=== PATIENT | male | born 1980 | race Caucasian/White ===

== ENCOUNTER 2021-02-09 23:31 | Emergency (ER) | payer OTHER, SELFPAY ==
[2021-02-09 23:40] VITALS: BP 168/112; PULSE 108; RESP 18; TEMP 36.6; O2SAT 98; BMI 41.8
--- NOTE | 2021-02-09 23:56 | PC.NURSE ---
Pt. moved to Rm 5 and provided a urine sample. Pt. is cooperative with staff and appropriate. Pt. is sitting quietly in Rm 5 at this time.
[2021-02-10] VITALS (8 sets, daily range): BP systolic 143–167; BP diastolic 90–96; PULSE 51–74; RESP 16–18; TEMP 36.4; O2SAT 98–100
[2021-02-10 00:12] LABS: UR Morphine/Opiate cutoff 300 Negative (Negative); Ur Creatinine 20 (Normal); Ur Specific Gravity 1.015 (Normal); Urine Amphetamines Negative (Negative); Urine Barbiturates Negative (Negative); Urine Benzodiazepines Negative (Negative); Urine Cocaine Negative (Negative); Urine MDMA Negative (Negative); Urine Methamphetamines Negative (Negative); Urine Phencyclidine Negative (Negative); Urine Tetrahydrocannabinol Positive (Negative); Urine pH 7 (Normal)
[2021-02-10 00:13] LABS: Urine Methadone Negative (Negative); Urine Oxycodone Negative (Negative); Urine Tricyclic Antidepressant Negative (Negative)
[2021-02-10 00:19] LABS: Add Manual Diff / Slide Review NO; Basophils Absolute Auto 0 /uL (0-100); Basophils Percent Auto 0.4 % (0-2); Eosinophils Absolute Auto 100 /uL (0-450); Eosinophils Percent Auto 1.4 % (2-4); Hematocrit 49.8 % (41-53); Hemoglobin 16.8 g/dL (13.5-17.5); Lymphocytes Absolute Auto 1800 /uL (1100-4500); Lymphocytes Percent Auto 19.4 % (25-40); Mean Corpuscular HGB Conc 33.8 % (30-36); Mean Corpuscular Hemoglobin 32.1 PG (26-34); Mean Corpuscular Volume 94.8 fL (80-100); Monocytes Absolute Auto 600 /uL (0-900); Monocytes Percent Auto 7.1 % (3-14); Neutrophils Absolute Auto 6500 /uL (1500-7000); Neutrophils Percent Auto 71.7 % (50-75); Platelet Count 188 X10^3/uL (150-400); Red Blood Cell Count 5.25 X10^6/uL (4.5-5.9); Red Cell Distribution Width 13.2 % (11.6-14.8); White Blood Cell Count 9.1 X10^3/uL (4.5-11.0)
[2021-02-10 00:25] LABS: Acetaminophen < 10 ug/mL (10-30); Alanine Aminotransferase 20 IU/L (<50); Albumin Globulin Ratio 1.3 (1.0-2.8); Alkaline Phosphatase 70 U/L (38-126); Aspartate Aminotransferase 22 IU/L (17-59); BUN Creatinine Ratio 13.3 (6-22); Bilirubin Total 0.7 mg/dL (0.2-1.3); Blood Urea Nitrogen 13 mg/dL (9-20); Calcium 9.2 mg/dL (8.4-10.2); Carbon Dioxide 27 mmol/L (22-32); Chloride 104 mmol/L (98-107); Estimated Glomerular Filt Rate > 60.0 mL/min (>60); Ethanol (ETOH) < 10 mg/dL; Globulin 3.2 g/dL (1.7-4.1); Glucose 95 mg/dL (70-100); HEMOLYSIS < 15 (0-50); Potassium 3.9 mmol/L (3.4-5.1); Salicylate < 1.0 mg/dL (<20); Sodium 137 mmol/L (137-145); Total Protein 7.2 g/dL (6.3-8.2)
[2021-02-10 01:01] LABS: Thyroid Stimulating Hormone 0.766 uIU/mL (0.47-4.68)
--- NOTE | 2021-02-10 01:55 | ED_ITS ---
HPI - Psych <DO Taiwo Harman Last Filed: 02/12/21 06:32> General Chief Complaint: Psychiatric Symptoms Stated Complaint: I don't want to harm myself Time Seen by Provider: 02/09/21 23:38 Source: patient Mode of arrival: Ambulatory History of Present Illness HPI Narrative: 41-year-old male smoker with noncontributory medical history presents with a chief complaint of suicidal ideation with plan. He states that he has become increasingly frustrated and depressed due to marital problems over the past few weeks. He denies any significant mental health history and has never had hospitalizations. He has no mental health providers. His primary care provider has had him on Prozac and just started some Seroquel. Patient denies any alcohol or street drugs. He denies any access to firearms. Patient states that [place] but that was brief and he does not think he would have jumped. He is here because he wants help with his depression and needs to talk to somebody. Related Data Home Medications Medication Instructions Recorded Confirmed fluoxetine 20 mg capsule 20 mg PO DAILY 02/10/21 02/10/21 lisinopril 20 mg tablet 20 mg PO DAILY 02/10/21 02/10/21 quetiapine 50 mg tablet (Seroquel) 50 mg PO BEDTIME 02/10/21 02/10/21 Allergies Allergy/AdvReac Type Severity Reaction Status Date / Time No Known Drug Allergies Allergy Verified 02/10/21 09:29 Review of Systems <DO Taiwo Harman Last Filed: 02/12/21 06:32> Constitutional Constitutional: Denies chills, Denies fatigue, Denies fever(s), Denies lethargy and Denies weakness Eyes Eyes: Denies change in vision ENT Ears, Nose, Mouth, and Throat: Denies dizziness and Denies sore throat Cardiovascular Cardiovascular: Denies chest pain and Denies dyspnea Respiratory Respiratory: Denies cough and Denies dyspnea Gastrointestinal Gastrointestinal: Denies abdominal pain, Denies nausea and Denies vomiting Neurologic Neurologic: Denies dizziness and Denies weakness Psychiatric Psychiatric: Reports depression, Denies homicidal ideation and Reports suicidal ideation Endocrine Endocrine: Denies fatigue Allergic/Immunologic Allergic/Immunologic: Denies urticaria Patient History <DO Taiwo Harman Filed: 02/12/21 06:32> Social History Smoking Status: Current some day smoker Smoking Status: Current some day smoker alcohol intake frequency: 0-2 drinks per day Substance Use Type: marijuana Exam <Kd Raman DO - Last Filed: 02/12/21 06:32> Narrative Exam Narrative: GENERAL: [41] year old patient appears stated age. Well- developed patient, in mild distress. HEAD: Atraumatic. Normocephalic. EYES: Pupils equal round and reactive. Extraocular motions intact. No scleral icterus. No injection or drainage. ENT: Nose without bleeding, purulent drainage. Throat without erythema, tonsillar hypertrophy or exudate. Airway patent. NECK: Trachea midline. Non tender CARDIOVASCULAR: Regular rate and rhythm without murmurs, gallops, or rubs. RESPIRATORY: Clear to auscultation. Breath sounds equal bilaterally. No wheezes, rales, or rhonchi. GASTROINTESTINAL: Abdomen soft, non-tender, nondistended. EXTREMITIES: No edema or joint tenderness. BACK: Nontender without deformity or crepitance. No flank tenderness. NEURO: AOx3. SKIN: No rash or erythema of visible areas Initial Vital Signs Initial Vital Signs: Vital Signs Temperature 97.9 F 02/09/21 23:40 Pulse Rate 108 H 02/09/21 23:40 Respiratory Rate 18 02/09/21 23:40 Blood Pressure 168/112 H 02/09/21 23:40 Pulse Oximetry 98 02/09/21 23:40 <Yolanda Munoz MD - Last Filed: 02/13/21 17:45> Initial Vital Signs Initial Vital Signs: Vital Signs Temperature 97.9 F 02/09/21 23:40 Pulse Rate 108 H 02/09/21 23:40 Respiratory Rate 18 02/09/21 23:40 Blood Pressure 168/112 H 02/09/21 23:40 Pulse Oximetry 98 02/09/21 23:40 Course <Kd Raman DO - Last Filed: 02/12/21 06:32> Orders Ordered: Discontinued Medications Fluoxetine HCl (Fluoxetine 20 Mg Capsule) 20 mg PO DAILY TAMERA Last Admin: 02/11/21 09:55 Dose: 20 mg Documented by: NICANORE Fluoxetine HCl (Fluoxetine 20 Mg Capsule) 20 mg PO NOW ONE Stop: 02/10/21 16:12 Last Admin: 02/10/21 16:50 Dose: 20 mg Documented by: JOSIE Lisinopril (Lisinopril 20 Mg Tablet) 20 mg PO DAILY [facility] Last Admin: 02/11/21 09:55 Dose: 20 mg Documented by: TERESA Lisinopril (Lisinopril 20 Mg Tablet) 20 mg PO NOW ONE Stop: 02/10/21 16:14 Last Admin: 02/10/21 16:49 Dose: 20 mg Documented by: JOSIE Quetiapine Fumarate (Quetiapine 100 Mg Tablet) 50 mg PO NOW ONE Stop: 02/10/21 08:51 Last Admin: 02/10/21 09:29 Dose: 50 mg Documented by: ANNA Quetiapine Fumarate (Quetiapine 25 Mg Tablet) 50 mg PO BEDTIME [facility] Last Admin: 02/10/21 21:10 Dose: 50 mg Documented by: JOSIE Vital Signs Vital signs: Vital Signs - 8 hr 02/10/21 03:47 Pulse Rate 60 Respiratory Rate 18 Blood Pressure 143/92 H Pulse Oximetry 98 <Yolanda Munoz MD - Last Filed: 02/13/21 17:45> Orders Ordered: Discontinued Medications Fluoxetine HCl (Fluoxetine 20 Mg Capsule) 20 mg PO DAILY [facility] Last Admin: 02/11/21 09:55 Dose: 20 mg Documented by: TERESA Fluoxetine HCl (Fluoxetine 20 Mg Capsule) 20 mg PO NOW ONE Stop: 02/10/21 16:12 Last Admin: 02/10/21 16:50 Dose: 20 mg Documented by: JOSIE Lisinopril (Lisinopril 20 Mg Tablet) 20 mg PO DAILY [facility] Last Admin: 02/11/21 09:55 Dose: 20 mg Documented by: TERESA Lisinopril (Lisinopril 20 Mg Tablet) 20 mg PO NOW ONE Stop: 02/10/21 16:14 Last Admin: 02/10/21 16:49 Dose: 20 mg Documented by: JOSIE Quetiapine Fumarate (Quetiapine 100 Mg Tablet) 50 mg PO NOW ONE Stop: 02/10/21 08:51 Last Admin: 02/10/21 09:29 Dose: 50 mg Documented by: ANNA Quetiapine Fumarate (Quetiapine 25 Mg Tablet) 50 mg PO BEDTIME [facility] Last Admin: 02/10/21 21:10 Dose: 50 mg Documented by: VIDHIOR Vital Signs Vital signs: Vital Signs - 8 hr 02/10/21 03:47 Pulse Rate 60 Respiratory Rate 18 Blood Pressure 143/92 H Pulse Oximetry 98 MDM - Psych <Kd RamanDO - Last Filed: 02/12/21 06:32> Lab Data Result diagrams: 02/10/21 00:05 02/10/21 00:05 Labs: Lab Results 02/09/21 02/10/21 02/10/21 Range/Units 23:50 00:05 00:05 WBC 9.1 (4.5-11.0) X10^3/uL RBC 5.25 (4.5-5.9) X10^6/uL Hgb 16.8 (13.5-17.5) g/dL Hct 49.8 (41-53) % MCV 94.8 (80-100) fL MCH 32.1 (26-34) PG MCHC 33.8 (30-36) % RDW 13.2 (11.6-14.8) % Plt Count 188 (150-400) X10^3/uL Neut % (Auto) 71.7 (50-75) % Lymph % (Auto) 19.4 L (25-40) % [place] % (Auto) 7.1 (3-14) % Eos % (Auto) 1.4 L (2-4) % Baso % (Auto) 0.4 (0-2) % Neut # (Auto) 6500 (4487-8835) /uL Lymph # (Auto) 1800 (1173-6041) /uL [place] # (Auto) 600 (0-900) /uL Eos # (Auto) 100 (0-450) /uL Baso # (Auto) 0 (0-100) /uL Sodium 137 (137-145) mmol/L Potassium 3.9 (3.4-5.1) mmol/L Chloride 104 (98-107) mmol/L Carbon Dioxide 27 (22-32) mmol/L BUN 13 (9-20) mg/dL Creatinine 0.98 (0.66-1.25) mg/dL Estimated GFR > 60.0 (>60) mL/min BUN/Creatinine Ratio 13.3 (6-22) Glucose 95 (70-100) mg/dL Calcium 9.2 (8.4-10.2) mg/dL Total Bilirubin 0.7 (0.2-1.3) mg/dL AST 22 (17-59) IU/L ALT 20 (<50) IU/L Alkaline Phosphatase 70 (38-126) U/L Total Protein 7.2 (6.3-8.2) g/dL Albumin 4.0 (3.5-5.0) g/dL Globulin 3.2 (1.7-4.1) g/dL Albumin/Globulin Ratio 1.3 (1.0-2.8) TSH (0.47-4.68) uIU/mL Free T4 (0.78-2.19) ng/dL Salicylates < 1.0 (<20) mg/dL U Opiates 300ng/mL cut Negative (Negative) Ur Oxycodone Screen Negative (Negative) Urine Methadone Screen Negative (Negative) Acetaminophen < 10 L (10-30) ug/mL Ur Barbiturates Screen Negative (Negative) U Tricyclic Antidepress Negative (Negative) Ur Phencyclidine Scrn Negative (Negative) Ur Amphetamines Screen Negative (Negative) U Methamphetamines Scrn Negative (Negative) Ur MDMA Scrn (Ecstasy) Negative (Negative) U Benzodiazepines Scrn Negative (Negative) Urine Cocaine Screen Negative (Negative) U Marijuana (THC) Screen Positive H (Negative) Ethyl Alcohol < 10 ( - 10) mg/dL SARS-CoV-2 (PCR) (Negative) 02/10/21 02/10/21 Range/Units 00:05 13:04 WBC (4.5-11.0) X10^3/uL RBC (4.5-5.9) X10^6/uL Hgb (13.5-17.5) g/dL Hct (41-53) % MCV (80-100) fL MCH (26-34) PG MCHC (30-36) % RDW (11.6-14.8) % Plt Count (150-400) X10^3/uL Neut % (Auto) (50-75) % Lymph % (Auto) (25-40) % [place] % (Auto) (3-14) % Eos % (Auto) (2-4) % Baso % (Auto) (0-2) % Neut # (Auto) (4225-5778) /uL Lymph # (Auto) (8940-2957) /uL [place] # (Auto) (0-900) /uL Eos # (Auto) (0-450) /uL Baso # (Auto) (0-100) /uL Sodium (137-145) mmol/L Potassium (3.4-5.1) mmol/L Chloride (98-107) mmol/L Carbon Dioxide (22-32) mmol/L BUN (9-20) mg/dL Creatinine (0.66-1.25) mg/dL Estimated GFR (>60) mL/min BUN/Creatinine Ratio (6-22) Glucose (70-100) mg/dL Calcium (8.4-10.2) mg/dL Total Bilirubin (0.2-1.3) mg/dL AST (17-59) IU/L ALT (<50) IU/L Alkaline Phosphatase (38-126) U/L Total Protein (6.3-8.2) g/dL Albumin (3.5-5.0) g/dL Globulin (1.7-4.1) g/dL Albumin/Globulin Ratio (1.0-2.8) TSH 0.766 (0.47-4.68) uIU/mL Free T4 1.10 (0.78-2.19) ng/dL Salicylates (<20) mg/dL U Opiates 300ng/mL cut (Negative) Ur Oxycodone Screen (Negative) Urine Methadone Screen (Negative) Acetaminophen (10-30) ug/mL Ur Barbiturates Screen (Negative) U Tricyclic Antidepress (Negative) Ur Phencyclidine Scrn (Negative) Ur Amphetamines Screen (Negative) U Methamphetamines Scrn (Negative) Ur MDMA Scrn (Ecstasy) (Negative) U Benzodiazepines Scrn (Negative) Urine Cocaine Screen (Negative) U Marijuana (THC) Screen (Negative) Ethyl Alcohol ( - 10) mg/dL SARS-CoV-2 (PCR) Negative (Negative) <Yolanda Munoz MD - Last Filed: 02/13/21 17:45> Lab Data Labs: Lab Results 02/09/21 02/10/21 02/10/21 Range/Units 23:50 00:05 00:05 WBC 9.1 (4.5-11.0) X10^3/uL RBC 5.25 (4.5-5.9) X10^6/uL Hgb 16.8 (13.5-17.5) g/dL Hct 49.8 (41-53) % MCV 94.8 (80-100) fL MCH 32.1 (26-34) PG MCHC 33.8 (30-36) % RDW 13.2 (11.6-14.8) % Plt Count 188 (150-400) X10^3/uL Neut % (Auto) 71.7 (50-75) % Lymph % (Auto) 19.4 L (25-40) % [place] % (Auto) 7.1 (3-14) % Eos % (Auto) 1.4 L (2-4) % Baso % (Auto) 0.4 (0-2) % Neut # (Auto) 6500 (7365-8930) /uL Lymph # (Auto) 1800 (9685-0125) /uL [place] # (Auto) 600 (0-900) /uL Eos # (Auto) 100 (0-450) /uL Baso # (Auto) 0 (0-100) /uL Sodium 137 (137-145) mmol/L Potassium 3.9 (3.4-5.1) mmol/L Chloride 104 (98-107) mmol/L Carbon Dioxide 27 (22-32) mmol/L BUN 13 (9-20) mg/dL Creatinine 0.98 (0.66-1.25) mg/dL Estimated GFR > 60.0 (>60) mL/min BUN/Creatinine Ratio 13.3 (6-22) Glucose 95 (70-100) mg/dL Calcium 9.2 (8.4-10.2) mg/dL Total Bilirubin 0.7 (0.2-1.3) mg/dL AST 22 (17-59) IU/L ALT 20 (<50) IU/L Alkaline Phosphatase 70 (38-126) U/L Total Protein 7.2 (6.3-8.2) g/dL Albumin 4.0 (3.5-5.0) g/dL Globulin 3.2 (1.7-4.1) g/dL Albumin/Globulin Ratio 1.3 (1.0-2.8) TSH (0.47-4.68) uIU/mL Free T4 (0.78-2.19) ng/dL Salicylates < 1.0 (<20) mg/dL U Opiates 300ng/mL cut Negative (Negative) Ur Oxycodone Screen Negative (Negative) Urine Methadone Screen Negative (Negative) Acetaminophen < 10 L (10-30) ug/mL Ur Barbiturates Screen Negative (Negative) U Tricyclic Antidepress Negative (Negative) Ur Phencyclidine Scrn Negative (Negative) Ur Amphetamines Screen Negative (Negative) U Methamphetamines Scrn Negative (Negative) Ur MDMA Scrn (Ecstasy) Negative (Negative) U Benzodiazepines Scrn Negative (Negative) Urine Cocaine Screen Negative (Negative) U Marijuana (THC) Screen Positive H (Negative) Ethyl Alcohol < 10 ( - 10) mg/dL SARS-CoV-2 (PCR) (Negative) 02/10/21 02/10/21 Range/Units 00:05 13:04 WBC (4.5-11.0) X10^3/uL RBC (4.5-5.9) X10^6/uL Hgb (13.5-17.5) g/dL Hct (41-53) % MCV (80-100) fL MCH (26-34) PG MCHC (30-36) % RDW (11.6-14.8) % Plt Count (150-400) X10^3/uL Neut % (Auto) (50-75) % Lymph % (Auto) (25-40) % [place] % (Auto) (3-14) % Eos % (Auto) (2-4) % Baso % (Auto) (0-2) % Neut # (Auto) (7808-0708) /uL Lymph # (Auto) (4224-6573) /uL [place] # (Auto) (0-900) /uL Eos # (Auto) (0-450) /uL Baso # (Auto) (0-100) /uL Sodium (137-145) mmol/L Potassium (3.4-5.1) mmol/L Chloride (98-107) mmol/L Carbon Dioxide (22-32) mmol/L BUN (9-20) mg/dL Creatinine (0.66-1.25) mg/dL Estimated GFR (>60) mL/min BUN/Creatinine Ratio (6-22) Glucose (70-100) mg/dL Calcium (8.4-10.2) mg/dL Total Bilirubin (0.2-1.3) mg/dL AST (17-59) IU/L ALT (<50) IU/L Alkaline Phosphatase (38-126) U/L Total Protein (6.3-8.2) g/dL Albumin (3.5-5.0) g/dL Globulin (1.7-4.1) g/dL Albumin/Globulin Ratio (1.0-2.8) TSH 0.766 (0.47-4.68) uIU/mL Free T4 1.10 (0.78-2.19) ng/dL Salicylates (<20) mg/dL U Opiates 300ng/mL cut (Negative) Ur Oxycodone Screen (Negative) Urine Methadone Screen (Negative) Acetaminophen (10-30) ug/mL Ur Barbiturates Screen (Negative) U Tricyclic Antidepress (Negative) Ur Phencyclidine Scrn (Negative) Ur Amphetamines Screen (Negative) U Methamphetamines Scrn (Negative) Ur MDMA Scrn (Ecstasy) (Negative) U Benzodiazepines Scrn (Negative) Urine Cocaine Screen (Negative) U Marijuana (THC) Screen (Negative) Ethyl Alcohol ( - 10) mg/dL SARS-CoV-2 (PCR) Negative (Negative) Discharge Plan Departure Patient Disposition: Xfer Psychiatric Hosp Clinical Impression: Suicidal ideation
--- NOTE | 2021-02-10 02:03 | PC.NURSE ---
Pt. is speaking with Dr. Raman.
--- NOTE | 2021-02-10 03:57 | PC.NURSE ---
Pt. on his phone, vitals taken.
[2021-02-10] MEDS: QUETIAPINE 100 MG TABLET 50 MG PO (09:29)
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
[2021-02-10 14:14] LABS: COVID19 - ADMIT (NP swab/PCR) Negative (Negative)
[2021-02-10] MEDS: lisinopriL 20 MG TABLET PO (16:49)
[2021-02-10] MEDS: FLUoxetine 20 MG CAPSULE PO (16:50)
--- NOTE | 2021-02-10 20:56 | PC.NURSE ---
Pt was talking about potentially leaving, friend arrived and pt spoke to Dr. Raman, at this time is agreeing to stay for treatment.
[2021-02-10] MEDS: QUETIAPINE 25 MG TABLET 50 MG PO (21:10)
[2021-02-11 09:55] VITALS: BP 150/87; PULSE 55; PULSE 62; O2SAT 98
[2021-02-11] MEDS: lisinopriL 20 MG TABLET PO (09:55)
[2021-02-11] MEDS: FLUoxetine 20 MG CAPSULE PO (09:55)
[2021-02-11 09:57] VITALS: BP 150/87; PULSE 59; O2SAT 96
--- NOTE | 2021-02-11 11:03 | CM.DANOTE ---
CONSERVATION COORDINATOR Note: Reviewed EMR this AM. CONSERVATION COORDINATOR placed call to [facility] re: bed availability, spoke with Raegan at [facility] and they report that they do have beds. Faxed updated notes to [facility] at # [phone]. Received return phone call from [facility] and they do have bed. CONSERVATION COORDINATOR notified [facility] and they had already been notified. Patient expected to be picked up within the next hour. RN reports that she has provided report. P: [facility] today. LAILA Cuellar
--- NOTE | 2021-02-11 11:29 | PC.NURSE ---
Pt friend came in to speak with patient. Both seem to be pleasant and enjoying conversation.
[2021-02-11 12:30] VITALS: BP 146/87; PULSE 51; RESP 19; O2SAT 97
== END 2021-02-11 12:32 ==
PROVIDERS: Emergency Medicine; Emergency Provider Emergency Medicine
DX: R45.851 Suicidal ideations (principal); Z20.822 Contact with and (suspected) exposure to COVID-19
CPT/HCPCS: 36415; 80053; 80305; 80320; 80329; 84439; 84443; 85025; 87635; 99284; C9803; G0480